=== PATIENT | female | born 1945 | race Caucasian/White ===

== ENCOUNTER 2016-06-05 05:36 | Inpatient (IN) | payer MEDICARE, MEDICAID ==
[~2016-06-05] VITALS: Ht 165.1 cm; Wt 105.5 kg
--- NOTE | 2016-06-14 08:39 | OR ---
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 PROCEDURES: 1. Wide cervical laminectomy with foraminal decompression as well with partial resection of the facets where necessary for decompression of the thecal sac and nerve roots, 3-4, 4-5, 5-6, and 6-7. 2. Placement of bilateral pedicle screws, bilateral lateral mass screws, cervical 3, 5, 6 and 7 with unilateral right side screw at C4 with out fracture of the left-sided C4 lateral mass. 3. Posterior segmental instrumentation, cervical 3, 4, 5, 6, 7. 4. [place] of autograft through same incision with morcellation and admixture with allograft and reimplantation into the posterolateral recesses for fusion substrate. 5. Posterior arthrodesis, cervical 3, 4, 5, 6 and 7. 6. Intraoperative neuromonitoring with no change from baseline at the end of the case. 7. Intraoperative fluoroscopy with physician interpretation of film. MANAGER PRINTING: Sherley Robin APRN. DESCRIPTION: After gaining informed consent, the patient was taken to the operative theater, placed under general endotracheal anesthesia in supine position and turned prone on a Daniel table with all pressure points purposely padded prior to performing the procedure. She was prepped and draped in usual sterile fashion. A time-out was utilized to ascertain the correct site and side of surgery as well as other pertinent patient historical information. Counts were obtained at the beginning and end of the case with no change betwixt 2. Antibiotics were given before 1 hour of incision. She was placed in [place] [employer] head very cautiously with 80 pounds of pressure and connected to the bed. The skin was incised in the midline. Her epidermis was very thin with a large adipose buffalo hump over top of the cervicothoracic junction. This tissue was dissected through to the nuchal fascia which was very weak and thin in appearance and dehiscent in some places without normal supraspinous attachment to multiple spinous prostheses which had pseudo arthritic type tissue between them and around them. Very cautious dissection was utilized in a subperiosteal manner at cervical 3, 4, 5, 6 and 7 taking caution not to interrupt the facet capsules at cervical 2-3 and cervical 7 thoracic 1. This was taken out widely over top of the lateral masses delineating the severely ADMIT: 06/05/2016 RM/LOC: [facility] MR#: [id number] [address] [place] [phone] [place] [address] Operative/Delivery Room Report SEX: F AGE: 71 : 1945 arthritic masses. Self-retaining retractors were then placed. Attention was then turned to placing the lateral mass screws. 1 mm inferomedial to the geographic center of the lateral masses cervical 3, 4, 5, 6, and 7 was decorticated and then hand drilled down and sounded at 12 mm with placement of 12 mm screws at every level with the exception of the left C7. The bone was very poor quality and extreme caution was used to not have screw pull out or bony stripping. There was out fracture of the small and very arthritic C4 on the left. I was unable to place a screw in that not be secondary to that. The facets were drilled down to aid in arthrodesis later. Various curettes, rongeurs, and a high-speed drill were then utilized to resect as much of the posterior structures as possible, morcellating this autograft and mixing it with morcellated allograft for re-implantation later. Once this was completed, this was extended out further widely as wide as necessary to decompress this very compressed thecal sac. The drill was then used to drill out over top of the foramen as well, passing foraminotomies as wide as necessary for full decompression. Once everything appeared fully decompressed, attention was turned to instrumentation. Posterior instrumentation was then placed. At the beginning of the case, I had verified levels and was able to count down from cervical 2. I was unable to visualize much below cervical 3 although at this time, posterior rods were then placed for set screws and cross connectors. Once this was completed, the lateral masses were further drilled back to a bone suitable for fusion substrate and attention was turned to packing autograft and allograft into this area. Pristine hemostasis was obtained. A ALEIDA drain was daylighted out and attention was turned to closure. The wound was closed with simple running 0 Ethibond utilizing wide stitching technique with this very thin, barely present tissue in the nuchal fascia. The subcutaneous tissue was also somewhat emaciated and thin as was the epidermis. Simple inverted interrupted 2-0 Ethibond and 2-0 Vicryl was used in the hypodermic tissue and vertical ADMIT: 06/05/2016 RM/LOC: [facility] MR#: [id number] [address] [place] [phone] [place] [address] Operative/Delivery Room Report SEX: F AGE: 71 : 1945 mattress 3-0 nylon was used on the skin. Ms. Robin assisted with suction, retraction, and closure at the end of the case. COMPLICATIONS: None. ESTIMATED BLOOD LOSS: Charted. SPECIMEN: None. DISPOSITION: Extubated and taken to postanesthesia care unit. Will Naik MD/ ofelia JOB #: [id number] CC: Will Naik, Attending Physician Alva Peters, Family Physician
--- NOTE | 2016-06-17 07:29 | CO ---
ADMIT: 06/05/2016 RM/LOC: 533 [facility] MR#: [id number] 2620 [facility] [address] [place] [phone] [place] [address] Consultation SEX: F AGE: 71 : 1945 DATE OF CONSULTATION: 06/07/2016 ATTENDING PHYSICIAN: Will Naik CONSULTING PHYSICIAN: Zeferino Schroeder MD REASON FOR CONSULTATION: Left shoulder pain. HISTORY OF PRESENT ILLNESS: The patient is a 71-year-old female, who underwent a cervical spine decompression and fusion of C3 through C7 on 05 of June. We were consulted to see her for shoulder pain. On asking the patient, she said she had terrible pain in her shoulder for about 3 years now. This got a little bit worse after the surgery. She states she has had some injections in the past by pain clinic physician as well as Dr. Richey. At this point, we were asked to see her for her shoulder pain. She states that the pain kind of starts up in her shoulder, goes all the way down her arm and does have a decreased sensation in her hand here as well. PHYSICAL EXAMINATION: Examination of the shoulder, she has global tenderness to palpation about the shoulder. Very little active range of motion. Passive motion is quite painful for her. Once again, this has been chronic and going on for least a couple years. Really unable to test her motor strength secondary to her unable to cooperate with this. She recently has had C-spine surgery and is in a cervical collar. She does have a little decreased sensation in the hand. IMAGING: X-rays obtained 3-views of the shoulder, I do not see any obvious fractures or dislocations here. No other acute bony abnormalities. Maybe a little elevation of the humeral head. No bony lesions. The films are somewhat suboptimal. ADMIT: 06/05/2016 RM/LOC: 533 [facility] MR#: [id number] 2620 [facility] [address] [place] [phone] [place] [address] Consultation SEX: F AGE: 71 : 1945 ASSESSMENT: Left shoulder chronic pain, may have some chronic rotator cuff pathology here. This may also be generating from her neck as well. PLAN: We talked about maybe trying an injection to see if this helps with the pain. She would like to try this today. After discussing risks, benefits with her and sterile prep, we injected the left subacromial space with 2 mL of 0.5% Marcaine plain, 2 mL of 1% lidocaine plain, and 2 mL of Celestone. The patient tolerated this well. We will have PT see her as well. We can see her back as an outpatient as needed. If this does not help with her shoulder pain, probably we would not be able to work this up or do anything further with this until she has recovered from her cervical spine surgery. Zeferino Schroeder MD/ ofelia JOB #: [id number] CC: Will Naik, Attending Physician Alva Peters, Family Physician
--- NOTE | 2016-06-18 09:29 | DS ---
ADMIT: 06/05/2016 RM/LOC: 533 [facility] MR#: [id number] [address] [facility] [address] [place] [phone] [place] [address] General Discharge Summary SEX: F AGE: 71 : 1945 ADMISSION DATE: 06/05/2016 DISCHARGE DATE: 06/08/2016 SERVICE: Neurosurgery. REASON FOR ADMISSION: 1. Cervical spondylosis with myelopathy and radiculopathy. 2. Cervical stenosis. 3. Neck pain. 4. Trouble walking. PROCEDURES: Posterior cervical laminectomy and fusion at cervical 3 through 7. HOSPITAL COURSE: Ms. Cardenas tolerated her procedure well. Postoperatively, she was admitted to the Med/Surg floor for monitoring and care. She did work with Physical Therapy and Occupational Therapy and tolerated this quite well. That evening, she did have some issues with some hypertension and was given some p.r.n. medications. Postop day #1, she was awake and alert. She was afebrile and her vital signs were stable. She was moving all extremities x4. She was eating well. Her ALEIDA drain was patent with serosanguineous drainage. Her dressing was clean, dry, and intact. She was complaining of pain and her medications were adjusted for her. She continued to work with Occupational Therapy and Physical Therapy and tolerated this quite well. Postop day #2, she was awake and alert. She was afebrile, and her vital signs were stable. She was moving all extremities x4 with left upper extremity of 4/5 and was complaining of pain in left upper extremity. Her incision was clean, dry, and intact and her ALEIDA drain was patent with just a small amount of serosanguineous drainage, therefore, was discontinued without difficulty. Orthopedics was consulted for her left shoulder pain with her history of osteoarthritis and questioned whether steroid injection would be beneficial for her. They did order a 3-view shoulder x-ray which showed no acute process. They did go ahead and inject her shoulder. She continued to work with Physical Therapy and Occupational Therapy. Postop day 3, she was afebrile, her vital signs were stable. She was awake and alert. She reported that her left shoulder, she did have some relief. She was ambulating to the nurses station and back to her room. She was ambulating, urinating, and defecating per her norm and was discharged to the residential. DISCHARGE CONDITION: Good. MEDICATIONS: 1. Abilify 10 mg p.o. b.i.d. 2. Colace 100 mg p.o. b.i.d. 3. Culturelle 1 cap p.o. daily. 4. Cymbalta 60 mg b.i.d. 5. Depakote ER 500 mg at bedtime. 6. Ditropan XL 5 mg daily. 7. Milk of magnesia 10 mL q.a.m. ADMIT: 06/05/2016 RM/LOC: 533 [facility] MR#: [id number] [address] [place] [phone] [place] [address] General Discharge Summary SEX: F AGE: 71 : 1945 8. Pravachol 20 mg daily. 9. Protonix 40 mg daily. 10.Ritalin 10 mg at 8 and noon. 11.Senokot 8.6 mg b.i.d. 12.Senokot 1 tab b.i.d. 13.Seroquel 100 mg at bedtime. 14.Seroquel 25 mg b.i.d. at 0900 hours and 1500 hours. 15.Synthroid 0.075 mg daily. 16.Dulcolax suppository 10 mg rectally daily. 17.Bacitracin ointment to incision q.p.m. 18.Eucerin cream topically b.i.d. 19.Lomotil 1 tab p.o. q.i.d. p.r.n. 20.Maalox 30 mL q.6 hours p.r.n. 21.Milk of magnesia 10 mL daily p.r.n. 22.Biotene p.r.n. 23.Percocet 7.5, 1-2 tabs q.4 hours p.r.n. 24.Seroquel 25 mg p.o. q.30 minutes p.r.n. 25.Surfak 240 mg b.i.d. p.r.n. 26.Tylenol 650 mg q.4 hours p.r.n. 27.Valium 5 mg 1-2 p.o. q.4 hours p.r.n. 28.Valium 2-4 mg p.o. q.6 hours p.r.n. 29.Flonase 2 sprays daily p.r.n. 30.Natural tears one drop in both eyes b.i.d. p.r.n. 31.Dulcolax suppository 10 mg daily p.r.n. 32.Tylenol 650 mg rectally q.4 hours p.r.n. 33.Voltaren gel topically q.i.d. p.r.n. DISCHARGE INSTRUCTIONS: Per Dr. Larios, she can have a regular diet. She may shower, she should not take any tub baths, she should pat her incision dry. ADMIT: 06/05/2016 RM/LOC: 533 [facility] MR#: [id number] [address] [phone] [place] [address] General Discharge Summary SEX: F AGE: 71 : 1945 She should not let the incision stay under the running water for a prolonged period of time. She should wear her cervical collar at all times. She should continue with Physical Therapy and Occupational Therapy. She will call with any questions or concerns including neurological worsening, signs or symptoms of infection, or any other issues. FOLLOWUP: She will follow up in clinic in 2 weeks. DISPOSITION: She was discharged to the residential. Total [id number] time for the discharge planning care coordination was 30 minutes. Sherley Robin APRN / Chacha Larios MD / ofelia JOB #: [id number] CC: Will Naik MD, Attending Physician Alva Peters, Family Physician
== END 2016-06-08 12:00 | DRG 473 ==
LOC: WOR 05:36 → 5MS 05:36
PROVIDERS: ADMIT Neurological Surgery
PROC: 0RG2071 Fusion of 2 or more Cervical Vertebral Joints with Autologous Tissue Substitute, Posterior Approach, Posterior Column, Open Approach (ICD-10-PCS; principal; 2016-06-05)
PROC: 3E0U3BZ Introduction of Anesthetic Agent into Joints, Percutaneous Approach (ICD-10-PCS; 2016-06-07)
PROC: 3E0U33Z Introduction of Anti-inflammatory into Joints, Percutaneous Approach (ICD-10-PCS; 2016-06-07)
DX: M47.12 Other spondylosis with myelopathy, cervical region (principal); F25.9 Schizoaffective disorder, unspecified; F32.9 Major depressive disorder, single episode, unspecified; K21.9 Gastro-esophageal reflux disease without esophagitis; M19.012 Primary osteoarthritis, left shoulder; E78.5 Hyperlipidemia, unspecified; E03.9 Hypothyroidism, unspecified; Z96.659 Presence of unspecified artificial knee joint